=== PATIENT | male | born 1965 | race Caucasian/White ===

== ENCOUNTER 2018-09-09 09:39 | Emergency (ER) | payer OTHER ==
[~2018-09-09] VITALS: Ht 180.3 cm; Wt 84.4 kg
[2018-09-09] MEDS ORDERED: XARELTO20 MG PO (11:06)
[2018-09-09 11:50] VITALS: BP 129/71
== END 2018-09-09 11:50 | disposition home or self-care (01) ==
LOC: ER 09:39
DX: M16.11 Unilateral primary osteoarthritis, right hip (principal); M25.561 Pain in right knee; G89.29 Other chronic pain; Z76.0 Encounter for issue of repeat prescription; Z88.6 Allergy status to analgesic agent

== ENCOUNTER 2018-09-16 09:52 | Emergency (ER) | payer OTHER ==
[~2018-09-16] VITALS: Ht 177.8 cm; Wt 84.4 kg
[~2018-09-16 09:52] MED LIST: XARELTO20 MG PO
[2018-09-16 11:36] VITALS: BP 172/106
== END 2018-09-16 11:25 | disposition left against medical advice (07) ==
LOC: ER 09:52
DX: G89.29 Other chronic pain (principal); M79.604 Pain in right leg; I10 Essential (primary) hypertension; F17.210 Nicotine dependence, cigarettes, uncomplicated; Z86.711 Personal history of pulmonary embolism; Z88.6 Allergy status to analgesic agent